=== PATIENT | male | born 1955 | race Caucasian/White ===

== ENCOUNTER 2018-11-27 16:30 | Outpatient (REF) | payer MEDICARE, SELFPAY ==
[2018-11-27 18:51] LABS: BUN 13 mg/dL (7-18); CREATININE 0.86 mg/dL (0.70-1.30); Calcium 9.1 mg/dL (8.5-10.1); Calculated LDL 105; Chloride 101 mmol/L (98-107); Cholesterol 214 mg/dL (50-200); Glucose 106 mg/dL (70-100); HDL Cholesterol 43 mg/dL (40-60); Potassium 3.6 mmol/L (3.5-5.1); Sodium 139 mmol/L (136-145); Triglyceride 332 mg/dL (30-150)
[2018-11-27 19:02] LABS: Uric Acid 8.1 mg/dL (3.5-7.2)
[2018-11-29 09:34] LABS: Hepatitis C Ab w Rflx HCV PCR Negative (NEGAT)
== END 2018-11-27 16:50 ==
LOC: LBO 16:30
PROVIDERS: PCP Internal Medicine; Visit Provider Internal Medicine
DX: M10.472 Other secondary gout, left ankle and foot (principal); Z11.59 Encounter for screening for other viral diseases; E78.00 Pure hypercholesterolemia, unspecified; I10 Essential (primary) hypertension
CPT/HCPCS: 80048; 80061; 83721; 86803; 84550

== ENCOUNTER 2020-03-03 11:29 | Outpatient (REF) | payer OTHER, SELFPAY ==
[2020-03-03 21:14] LABS: HCT 40.7 % (40.0-50.0); HGB 14.1 g/dL (13.5-17.5); MCH 31.1 pg (27.0-33.0); MCHC 34.6 % (32.0-36.0); MCV 89.6 fL (80-95); MPV 11.5 fL (8.0-11.0); Platelet Count 274 10^3/uL (130-400); RBC 4.54 10^6/uL (4.36-5.78); RDW 11.9 % (11.8-14.1); RDW-SD 38.7 fL; WBC 5.52 10^3/uL (4.4-10.8)
[2020-03-03 21:26] LABS: ALT 45 U/L (16-63); AST 27 U/L (15-37); Albumin 4.3 g/dL (3.4-5.0); Alkaline Phosphatase 87 U/L (46-116); Anion Gap 6.1 mmol/L (3-11); BUN 17 mg/dL (7-18); Bilirubin, Total 0.6 mg/dL (0.2-1.0); CO2 25.9 mmol/L (21.0-32.0); Calcium 8.8 mg/dL (8.5-10.1); Chloride 103 mmol/L (98-107); Cholesterol 212 mg/dL (<200); Glucose 114 mg/dL (74-106); HDL Cholesterol 46 mg/dL (40-60); Potassium 4.2 mmol/L (3.5-5.1); Sodium 135 mmol/L (136-145); Total Protein 7.2 g/dL (6.4-8.2); Triglyceride 432 mg/dL (<150)
[2020-03-03 22:03] LABS: LDL CHOLESTEROL 117 mg/dL (<100)
== END 2020-03-03 11:49 ==
LOC: NCHCN 11:29
PROVIDERS: Visit Provider Family Medicine
DX: I10 Essential (primary) hypertension (principal); E78.00 Pure hypercholesterolemia, unspecified
CPT/HCPCS: 80053; 80061; 83721; 85027

== ENCOUNTER 2021-03-15 15:19 | Outpatient (REF) | payer OTHER, SELFPAY ==
[2021-03-15 15:30] LABS: ALT 49 U/L (16-63); AST 24 U/L (15-37); Albumin 4.4 g/dL (3.4-5.0); Alkaline Phosphatase 97 U/L (46-116); Anion Gap 10.9 mmol/L (3-11); BUN 13 mg/dL (7-18); Bilirubin, Total 0.6 mg/dL (0.2-1.0); CO2 24.1 mmol/L (21.0-32.0); CREATININE 0.9 mg/dL (0.70-1.30); Chloride 103 mmol/L (98-107); Glucose 116 mg/dL (74-106); Sodium 138 mmol/L (136-145); Total Protein 7.4 g/dL (6.4-8.2)
== END 2021-03-15 15:20 | disposition home or self-care (01) ==
LOC: NCHCN 15:19
PROVIDERS: Visit Provider Internal Medicine
DX: I10 Essential (primary) hypertension (principal); E78.00 Pure hypercholesterolemia, unspecified; K22.70 Barrett's esophagus without dysplasia
CPT/HCPCS: 80053

== ENCOUNTER → 2021-12-08 09:36 | Outpatient (BNVA) | payer MEDICARE, SELFPAY | PROVIDERS: Referring Provider Family Medicine; Visit Provider Nurse Practitioner Adult Health | DX: G56.02 Carpal tunnel syndrome, left upper limb (principal) | CPT/HCPCS: 95908; 99203 ==

== ENCOUNTER → 2022-01-31 09:44 | Outpatient (BNVA) | payer MEDICARE, SELFPAY | PROVIDERS: PCP Family Medicine; Referring Provider Nurse Practitioner Adult Health; Visit Provider Student in an Organized Health Care Education/Training Program | DX: G56.02 Carpal tunnel syndrome, left upper limb (principal) | CPT/HCPCS: 99213 ==

== ENCOUNTER 2022-02-22 12:45 | Day surgery (SDC) | payer MEDICARE, SELFPAY ==
--- NOTE | 2022-02-22 10:07 | W.ANESPRE ---
General Info Date of Service Date Performed: 02/22/22 Height: 5 ft 10.5 in Weight: 84.822 kg Body Mass Index (BMI): 26.4 Surgical Procedure: Operation Date: 02/22/22 15:25 Proposed Procedure Side Surgeon p Wrist ECTR Left Deacon Mackey MD Meds Allergies and Home Medications Allergies Allergy/AdvReac Type Severity Reaction Status Date / Time No Known Allergies Allergy Verified 02/18/22 12:15 Home Medication Medication Instructions Recorded aspirin 81 mg tablet,delayed 81 mg PO DAILY 09/04/13 release (Aspir-) multivitamin with minerals (Men's 1 ea PO DAILY 09/04/13 One Daily tablet) pantoprazole 20 mg tablet,delayed 20 mg PO DAILY #180 tabs 11/27/18 release amlodipine 10 mg tablet 10 mg PO DAILY #90 tab-caps 02/26/19 rosuvastatin 10 mg tablet (Crestor) 10 mg PO DAILY #90 tab-caps 02/26/19 omega 6-qxu-itg-fish oil 60 mg-90 1 cap PO DAILY 10/22/21 mg-500 mg capsule acetaminophen 500 mg tablet 500 mg PO Q6H PRN pain #60 tabs 02/22/22 ibuprofen 600 mg tablet 600 mg PO TID PRN pain #60 tabs 02/22/22 Current Visit Medications: Current Medications Generic Name Dose Route Start Last Admin Trade Name Freq PRN Reason Stop Dose Admin Cefazolin Sodium/Dextrose 2 gm in 50 mls @ 100 mls/hr 02/22/22 06:00 Ancef Duplex IVPB 03/20/22 23:59 PREOP VIV IV Miscellaneous Supplies 1 each 02/22/22 06:00 Iv Access IV 03/20/22 23:59 DIRECTED VIV Sodium Chloride 0 ml 02/22/22 06:00 Normal Saline Flush 10 Ml Syr IV 03/20/22 23:59 PRN PRN Sodium Chloride 0 ml 02/22/22 06:00 Normal Saline 10 Ml Vial IJ 03/20/22 23:59 DIRECTED PRN Sterile Water 0 ml 02/22/22 06:00 Water,Injection,Sterile 10 Ml Vial IJ 03/20/22 23:59 DIRECTED PRN PFSH Active Problems Active Problems: Problem Status Onset Code Left carpal tunnel syndrome G56.02 Tubulovillous adenoma of colon 04/03/12 D12.6 Right knee pain 12/24/14 M25.561 Pure hypercholesterolemia 09/04/13 E78.00 Other secondary gout, 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 Nondependent alcohol abuse, continuous drinking behavior 09/04/13 F10.10 Hiatal hernia K44.9 Essential hypertension 04/03/12 I10 Galarza's esophagus 04/03/12 K22.70 Anxiety 09/04/13 F41.9 Medical History Medical History Alcohol abuse, continuous Barretts esophagus De Quervain's disease (tenosynovitis) Essential hypertension Gout Hx of adenomatous polyp of colon Osteoarthritis of knee Paresthesia of hand, bilateral Surgical History Surgical History Colonoscopy - IV Sedation (06/11/07) Colonoscopy - MAC (04/25/17) EGD - MAC (04/25/17) Endoscopy (10/04/17) 2017, 2017, 01/04 & 04/06 Tobacco Smoking/Tobacco Use Status: Former Tobacco Use Alcohol Alcohol Intake: current Alcohol intake frequency: 3 or more drinks per day Alcohol type: beer Substance Use Substance use: Occasionally Substance use type: marijuana Vital Signs and Lab Results Lab Results Blood Type / Crossmatch: No Data to Display Complete Blood Count: No Data to Display Complete Metabolic Panel: No Data to Display Liver Function Panel: No Data to Display Coagulation Panel: No Data to Display Cardiac Panel: No Data to Display Arterial Blood Gas: No Data to Display Venous Blood Gas: No Data to Display Pancreas Panel: No Data to Display Thyroid Panel: No Data to Display Infectious Disease: No Data to Display Blood Cultures: No Data to Display Toxicology Panel: No Data to Display Anesthesia Assessment and Plan Anesthesia History Personal History: No History of Anesthesia Complications Family History: No Family History of Anesthesia Complications Exercise Tolerance Exercise Tolerance: Metabolic Equivalents>4 Cardiac & Pulmonary Exam Cardiac Exam: Normal S1/S2 Heart Sounds Pulmonary Exam: Clear Bilateral Breath Sounds Implantable Cardiac Device Does patient have a Pacemaker or an ICD?: No Airway Exam Known Difficult Airway: Yes Mallampati Class: 3 Mouth Opening: Normal (> 3cm) Thyromental Distance: Greater than 3 cm Neck Range of Motion: Full ROM Neck Circumference: Normal Teeth Condition: Normal Dentition ASA Classification ASA Score: ASA 2 Emergency Case?: No NPO Status NPO Status: NPO Clears >2 hours, Solids >8 hours Anesthesia Plan Resuscitation Status: Full Code Anesthesia Technique: IV Regional (Escalante Block) Airway Planned: Natural Airway Monitors Used: Standard Monitors Preoperative Comments:: 66 yo for CTS. Sig PMHx: hiatal hernia, Galarza's, anxiety, HTN. does not want any sedation.
[2022-02-22 10:10] VITALS: BMI 26.4
--- NOTE | 2022-02-22 10:17 | PDOC.DSDIS_ITS ---
Discharge Plan Disposition Patient Disposition: HOME Condition: Good Discharge Details Reason For Visit: Left carpal tunnel syndrome Attending Provider: Deacon Mackey Primary Care Provider: Juan Jose Home Meds and New Rx's Prescriptions: New ibuprofen 600 mg tablet 600 mg PO TID PRN (Reason: pain) Qty: 60 0RF acetaminophen 500 mg tablet 500 mg PO Q6H PRN (Reason: pain) Qty: 60 2RF Continued aspirin [Aspir-81] 81 MG tablet,delayed release (DR/EC) 81 mg PO DAILY Men's One Daily 1 EACH tablet 1 ea PO DAILY pantoprazole 20 mg tablet,delayed release (DR/EC) 20 mg PO DAILY Qty: 180 3RF Rx Instructions: for Barretts Esophagus rosuvastatin [Crestor] 10 mg tablet 10 mg PO DAILY Qty: 90 2RF amlodipine 10 mg tablet 10 mg PO DAILY Qty: 90 2RF omega 8-qud-qfy-fish oil 60-90-500 mg capsule 1 cap PO DAILY Rx Instructions: UNSPECIFIED DOSE Discharge Instructions Stand Alone Forms: Key Whitaker Tunnel Release Referrals: Deacon Mackey MD [ [facility] STAFF PHYSICIAN] - Activity:: Elevate Remove Dressings/Wound Care:: 72 hours Shower/Bathe:: 72 hours Diet:: As Tolerated Discharge Orders Discharge Orders: Discharge Order (Routine); Ordered 02/22/22 Ordered By: Muriel Sen
[2022-02-22 13:05] VITALS: BP 172/85; PULSE 85; RESP 20; TEMP 37; O2SAT 97
[2022-02-22] MEDS: Lactated Ringers 1,000 ML 80 ML IV (13:31)
[2022-02-22] MEDS: ceFAZolin 2 GM/50 ML BAG IVPB (13:42)
--- NOTE | 2022-02-22 13:51 | W.ANESNERVE ---
Nerve Block Single Injection Procedure Date and Time Date Performed: 02/22/22 Procedure Start: 13:32 Location Where Procedure Performed Procedure Location: Day Surgery Unit Reason Performed: Other (primary anesthetic. ) Requesting Provider: Deacon Mackey Timeout Performed Timeout Performed: Yes Monitoring Used Blood Pressure and SpO2 Sterility Sterility: Hand Hygiene, Surgical Cap, Surgical Mask and Chlorhexidine Sedation Given During Procedure Sedation Given (Indicate Dose Given): No Sedation given Patient Mental Status Patient Mental Status: Awake Nerve Block 1st Nerve Block: Laterality: Left Block Type: Ulnar Needle / Catheter Used: Other (1.5 25 ga) Local Anesthetic Bolus (Indicate Dose Given): Injected in 3-5ml increments after negative blood aspiration, Bupivacaine 0.5% Dose:: 3 mL and Lidocaine 2% Dose:: 1.5 mL Additives (Indicate Dose Given): None Ultrasound: Sterile probe cover and gel used Ultrasound Image Saved?: Yes Nerve Stimulator: Not Used Paresthesia: None Procedure Tolerated: No Complications Procedure Outcome: Successful Performed By: Angel Mills 2nd Nerve Block: Laterality: Left Block Type: Median Needle / Catheter Used: Other Local Anesthetic Bolus (Indicate Dose Given): Bupivacaine 0.5% Dose:: 3 mL and Lidocaine 2% Dose:: 1.5 mL Additives (Indicate Dose Given): None Ultrasound: Sterile probe cover and gel used Ultrasound Image Saved?: Yes Nerve Stimulator: Not Used Paresthesia: None Procedure Tolerated: No Complications Procedure Outcome: Successful Performed By: Angel Mills 3rd Nerve Block: Laterality: Left Block Type: Other Needle / Catheter Used: Other (1.5 25 ga) Local Anesthetic Bolus (Indicate Dose Given): Bupivacaine 0.5% Dose:: 4 mL and Lidocaine 2% Dose:: 2 mL Additives (Indicate Dose Given): None Ultrasound: Not Used Nerve Stimulator: Not Used Paresthesia: None Procedure Tolerated: No Complications Procedure Outcome: Successful Procedure Comment: local deposited ~ 1 cm above wrist crease Performed By: Angel Mills
[2022-02-22 14:04] VITALS: BP 171/85; PULSE 76; RESP 16; TEMP 36.8; O2SAT 97
--- NOTE | 2022-02-22 14:17 | W.ANESPOSTOP ---
Postoperative Evaluation Vital Signs Most Recent Imported Vital Signs: Most Recent Vital Signs Temp Pulse Resp BP Pulse Ox 37.0 C 85 20 172/85 H 97 02/22/22 13:05 02/22/22 13:05 02/22/22 13:05 02/22/22 13:05 02/22/22 13:05 Pain Score Most Recent Pain Score: Most Recent Pain Score Pain Level 0 02/22/22 13:05
--- NOTE | 2022-02-22 16:35 | W.ANESPOSTOP ---
Postoperative Evaluation Date, Time and Location Date Performed: 02/22/22 Time Performed: 13:51 Patient Location: Day Surgery Unit Vital Signs Most Recent Imported Vital Signs: Most Recent Vital Signs Temp Pulse Resp BP Pulse Ox 36.8 C 76 16 171/85 H 97 02/22/22 14:04 02/22/22 14:04 02/22/22 14:04 02/22/22 14:04 02/22/22 14:04 Pain Score Most Recent Pain Score: Most Recent Pain Score Pain Level 0 02/22/22 14:04 Assessment Mental Status: Awake (Alert & Oriented to Patient Baseline) Airway and Respiratory Function: Patent airway with normal (patient baseline) respiratory exam Cardiovascular Function: Hemodynamically Stable Hydration Status: Adequately Hydrated Nausea & Vomiting: No Nausea or Vomiting Pain: Pain is tolerable per patient Peripheral Nerve Block: Regional nerve block not resolved at time of post operative discharge
--- NOTE | 2022-02-22 18:24 | ROE_ITS ---
Date of service: 02/22/22 Time of Service: 14:00 Operative Note Operative Note DATE OF PROCEDURE: 02/22/22 PRE-OP DIAGNOSIS: Left Carpal Tunnel Syndrome POST-OP DIAGNOSIS: same PROCEDURE: Left Endoscopic Carpal Tunnel Release SURGEON: Deacon Mackey ANESTHESIA TYPE: General:No Airway Refer to Anesthesia Record ESTIMATED BLOOD LOSS: 0 PATHOLOGY: none sent TOURNIQUET TIME: 6 COMPLICATIONS: None Patient was transported to: same day Patient's condition: stable Indications: I have seen Zheng in clinic for symptoms of carpal tunnel syndrome. The numbness, tingling, and pain limited function. Clinical exam findings confirmed the diagnosis of carpal tunnel syndrome. Nonoperative measures such as bracing, time, activity modifications had been tried but disability and pain persisted. I discussed carpal tunnel release with the patient. I reviewed the risks of the procedure to include, but not limited to, bleeding, infection, pain, stiffness, incomplete release, damage to nerves or vessels, persistent numbness, recurrence. Despite these risks, the patient elected to proceed. Findings: There was tightened carpal tunnel. This was dilated and released successfully with the endoscopic with increased space within the tunnel. The antebrachial fascia was released proximally freeing the median nerve at the wrist. Procedure Description: Zheng was greeted in the preoperative holding area where the correct side was identified and marked. The consent was reviewed with the patient and signed. The history and physical was updated. All questions were answered. Anesthesia provided a median nerve blockade, administered under ultrasound in the [facility]. He was taken back to the operating room. The patient was placed into the supine position on the operating room table with the left arm on an arm board. A nonsterile tourniquet was placed high onto the arm. All bony prominences were well padded. Prophylactic antibiotics in the form of Cefazolin were administered. The left arm was then prepped with Chloraprep and draped in a standard fashion with stockinette and extremity drape. A timeout to confirm correct identity, side and site, procedure, allergies, anesthesia, and medical concerns was performed. The surgical site was marked in the volar wrist creases in line with the radial border of the fourth ray. This area was anesthetized with approximately 6cc of 1% Lidocaine. The limb was then exsanguinated with an Esmarch. The skin was incised with a 15 blade, approximately 1cm. The skin only was cut and the deeper tissue was dissected bluntly with a tenotomy scissor, avoiding passing nerve and venous structures. The fascia was penetrated and opened bluntly. A two-prong skin hook was placed under this proximal fascial edge. A series of hamate finders were used to identify and dilate the carpal tunnel. Synovial elevator was used to free synovial attachments to the underside of the transverse carpal ligament. My thumb was kept in the palm to gordon the distal extent of the carpal tunnel and correctly position the hand. The [employer] endoscope was inserted without difficulty and without resistance. Excellent visualization showed horizontally running fibers of the transverse carpal l igament (TCL). The distal extent of the TCL was visualized and the end of the scope palpated with the thumb. The blade was elevated and withdrawn from distal to proximal. The TCL was split into two flaps. The endoscope was reinserted to confirm complete release and any remnant ligament was incised. The scope was withdrawn and the proximal aspect of the carpal tunnel was grossly inspected and appeared release with the median nerve visible. The antebrachial fascia at the level of the wrist was then freed from the overlying skin and then the underlying median nerve with blunt dissection. This was transected longitudinally for about 3cm proximal to the wrist incision. The wound was then irrigated with easy flow of irrigant distally and proximally. The incision was closed with a single 4-0 Nylon suture. The wound was dressed with Xeroform, Gauze, Kerlix and Abisai. The tourniquet was deflated with the initial dressing and held with some pressure. Blood flow returned easily to all digits with capillary refill less than 2 seconds. The patient tolerated the procedure well and was returned to the Same Day Surgery area in a stable condition suffering no known complication.
== END 2022-02-22 14:52 | disposition home or self-care (01) ==
PROVIDERS: PCP Family Medicine; Visit Provider Student in an Organized Health Care Education/Training Program
PROC: 01N54ZZ Release Median Nerve, Percutaneous Endoscopic Approach (ICD-10-PCS; CPT 29848; principal; 2022-02-22 15:15)
DX: G56.02 Carpal tunnel syndrome, left upper limb (principal); I10 Essential (primary) hypertension; K21.9 Gastro-esophageal reflux disease without esophagitis
CPT/HCPCS: 29848; 76942; J0690

== ENCOUNTER 2022-07-05 10:18 | Outpatient (CLI) | payer MEDICARE, SELFPAY ==
--- NOTE | 2022-07-05 09:45 | DI.RAD_ITS ---
Exam(s) XR SHOULDER RT COMPLETE 2+V EXAM: XR SHOULDER RT COMPLETE 2+V CLINICAL HISTORY: right shoulder pain. TECHNIQUE: 2D digital imaging was performed. COMPARISON: No exams were available for comparison FINDINGS: Two views: No evidence of acute fracture. There is significant osteoarthritic degenerative change in the glenoh umeral joint. There is also an element of upward subluxation of the humeral head in the glenoid omega a and elimination of the subacromial space. Also calcification noted in the soft tissues lateral to the a chromium and humeral head. Some degenerative change in the AC joint noted. There is also a calcified posterior located body measuring 2.8 by 2.5 cm in the posterior aspect of t he glenohumeral joint space, seen on the axial view. 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 Loose calcified body posteriorly. DATA REPOSITORY: RADIATION DOSE DELIVERED:
== END 2022-07-05 10:19 | disposition home or self-care (01) ==
LOC: DIORS 10:18
PROVIDERS: PCP Family Medicine; Referring Provider Family Medicine; Visit Provider Student in an Organized Health Care Education/Training Program
DX: M12.811 Other specific arthropathies, not elsewhere classified, right shoulder
CPT/HCPCS: 99214; 73030

== ENCOUNTER 2023-06-06 20:14 | Outpatient (REF) | payer MEDICARE, SELFPAY ==
[2023-06-06 14:40] LABS: Abs Immature Grans 0.02 10^3/uL (0.0-0.06); Absolute Basophil Count 0.06 10^3/uL (0.0-0.2); Absolute Eosinophil Count 0.12 10^3/uL (0.0-0.7); Absolute Monocyte Count 0.63 10^3/uL (0.1-0.8); Absolute Neutrophil Count 3.65 10^3/uL (1.2-6.7); HCT 44.1 % (40.0-50.0); HGB 15.3 g/dL (13.5-17.5); Immature Grans % 0.3; Lymphocytes % 23.8; MCH 30.2 pg (27.0-33.0); MCHC 34.7 % (32.0-36.0); MCV 87 fL (80-95); MPV 10.8 fL (8.0-11.0); Monocytes % 10.7; Neutrophils % 62.2; Platelet Count 274 10^3/uL (130-400); RBC 5.06 10^6/uL (4.36-5.78); RDW-SD 38.7 fL; WBC 5.88 10^3/uL (4.4-10.8)
[2023-06-06 14:47] LABS: Uric Acid 7.2 mg/dL (3.5-7.2)
[2023-06-06 15:01] LABS: Hemoglobin A1C 5.7 % (<5.7)
== END 2023-06-06 20:15 | disposition home or self-care (01) ==
LOC: NCHCN 20:14
PROVIDERS: PCP Family Medicine; Visit Provider Family Medicine
DX: Z00.00 Encounter for general adult medical examination without abnormal findings (principal)
CPT/HCPCS: 83036; 84550; 85025

== ENCOUNTER → 2023-12-27 08:05 | Outpatient (BNVA) | payer MEDICARE, SELFPAY | PROVIDERS: PCP Family Medicine; Referring Provider Family Medicine; Visit Provider Nurse Practitioner Adult Health | DX: G56.01 Carpal tunnel syndrome, right upper limb (principal) | CPT/HCPCS: 95908; 99215 ==

== ENCOUNTER → 2024-03-07 07:48 | Outpatient (BNVA) | payer MEDICARE, SELFPAY | PROVIDERS: PCP Family Medicine; Referring Provider Family Medicine; Visit Provider Student in an Organized Health Care Education/Training Program | DX: G56.01 Carpal tunnel syndrome, right upper limb (principal); G56.21 Lesion of ulnar nerve, right upper limb | CPT/HCPCS: 99213 ==